=== PATIENT | male | born 1955 | race Caucasian/White ===

== ENCOUNTER 2016-10-30 11:18 | Outpatient (CLI) | payer MEDICARE ==
--- NOTE | 2016-10-30 22:34 | RAD ---
LEFT HIP FILMS 10/30/16 It is unclear to me how well he has actually healed along the original fracture line. I feel given a ll of the above findings, the old films should be obtained and the patient should be referred to an orthopedic surgeon for a followup evaluation. IMPRESSION: Possible mild sclerosis of the femoral head. Small fracture lines suggested from the articular surfa ce of the femoral head to the tip of the compression screw. Ortho followup is needed. Code T POS: HOME
== END 2016-10-30 11:19 | disposition home or self-care (01) ==
LOC: BURRAD 11:18
PROVIDERS: ATTEND Family Medicine
DX: Z09 Encounter for follow-up examination after completed treatment for conditions other than malignant neoplasm (principal); Z87.81 Personal history of (healed) traumatic fracture

== ENCOUNTER 2018-08-25 15:56 | Outpatient (CLI) | payer MEDICARE ==
--- NOTE | 2018-08-25 19:03 | RAD ---
CHEST TWO VIEWS: 08/25/18 Comparison is made with an 06/23/11 study. There is some streaking in the lingula of the left upper lobe. This was not present before. This may be either an acute pneumonia or scarring that has occurred in the interval. The right lung is clear. The heart size is stable and there is no vascular congestion or edema. The lungs are hyperexpanded. IMPRESSION: Hyperexpanded lungs with lingular infiltrate of indeterminate age. In the proper clinical context, th is could be a small developing lingular pneumonia. POS: HOME
== END 2018-08-25 15:57 | disposition home or self-care (01) ==
LOC: BURRAD 15:56
PROVIDERS: ATTEND Family Medicine
DX: R05 Cough (principal); R91.8 Other nonspecific abnormal finding of lung field
CPT/HCPCS: 71046